=== PATIENT | female | born 1955 | race Two or more races ===

== ENCOUNTER 2022-09-13 10:51 | Emergency (ER) | payer BC, MEDICARE ==
[2022-09-13 12:09] LABS: APPEARANCE,URINE CLOUDY (CLEAR); COLOR,URINE OTHER (YELLOW)
[2022-09-13 12:18] LABS: AMORPHOUS SEDIMENT,URINE RARE; BACTERIA,URINE MANY; EPITHELIAL CELLS,URINE OCCASIONAL; MUCUS,URINE NOT SEEN; RBC,URINE 0-5 (0-5); WBC,URINE PACKED (0-5)
== END 2022-09-13 13:30 | disposition home or self-care (01) ==
LOC: JP.ED 10:51
DX: N30.00 Acute cystitis without hematuria (principal); Z88.1 Allergy status to other antibiotic agents
CPT/HCPCS: 81001; 87086; 99283